=== PATIENT | male | born 1945 | race Caucasian/White ===

== ENCOUNTER → 2020-08-08 | Outpatient (CLI) | payer MEDICARE ==
[~2020-08-08] MED LIST: REGADENOSON 0.4 MG/5 ML SYRINGE ONE
== END | disposition home or self-care (01) ==
LOC: RAD 09:46
PROVIDERS: ATTEND Nurse Practitioner Primary Care
DX: I25.9 Chronic ischemic heart disease, unspecified (principal); I10 Essential (primary) hypertension; I25.10 Atherosclerotic heart disease of native coronary artery without angina pectoris; E78.2 Mixed hyperlipidemia
CPT/HCPCS: 78452; 93017; A9502; J2785

== ENCOUNTER 2020-08-21 11:14 | Day surgery (SDC) | payer MEDICARE ==
[~2020-08-21] VITALS: Ht 177.8 cm; Wt 80.0 kg
[2020-08-21] MEDS ORDERED: LISI1TAB39 PO (13:35)
[2020-08-21] MEDS ORDERED: ASPI-515 PO (13:35)
[2020-08-21] MEDS ORDERED: ATOR20TA37 PO (13:35)
[2020-08-21] MEDS ORDERED: FINA5TAB4 PO (13:35)
[2020-08-21] MEDS ORDERED: TAMS-11 PO (13:35)
[2020-08-21 14:18] LABS: BASOPHILS # (AUTO) 0.04 x10^3/uL (0-0.1); BASOPHILS % (AUTO) 0 % (0-1); EOSINOPHILS % (AUTO) 2 % (1-7); LYMPHOCYTES # (AUTO) 2.87 x10^3/uL (1-3.4); LYMPHOCYTES % (AUTO) 26 % (22-44); MD NO; MEAN CORPUSCULAR HEMOGLOBIN 32.8 pg (27.5-34.5); MEAN CORPUSCULAR HGB CONC 33.4 g/dL (33.2-36.2); MEAN PLATELET VOLUME 7.6 fL (7.4-10.4); MONOCYTES # (AUTO) 0.92 x10^3/uL (0.2-0.8); MONOCYTES % (AUTO) 8 % (2-9); NEUTROPHILS # (AUTO) 6.91 x10^3/uL (1.8-6.8); NEUTROPHILS % (AUTO) 63 % (42-75); PLATELET COUNT 281 x10^3/uL (130-400); RED BLOOD COUNT 4.67 x10^6/uL (4.38-5.82)
[2020-08-21 14:22] VITALS: BP 118/67
[2020-08-21 14:25] LABS: ANION GAP 6 mmol/L (5-15); CHLORIDE 100 mmol/L (98-107)
[2020-08-21] MEDS ORDERED: MIDAZOLAM 1 MG/ML, 5ML ONE (14:52)
[2020-08-21] MEDS ORDERED: FENTANYL PF 100 MCG/2ML ONE (14:52)
[2020-08-21] MEDS ORDERED: VERAPAMIL 2.5 MG/ML, 2ML ONE (14:53)
[2020-08-21] MEDS ORDERED: BIVALIRUDIN 250 MG ONE (14:53)
[2020-08-21] MEDS ORDERED: HEPARIN 1,000 UNITS/ML, 10ML ONE (14:53)
[2020-08-21] MEDS ORDERED: LIDOCAINE-MPF 1%, 5ML ONE (14:53)
[2020-08-21] MEDS ORDERED: LIDOCAINE 2%, 20ML ONE (15:22)
== END 2020-08-21 17:54 | disposition home or self-care (01) ==
LOC: CACL 11:14
PROVIDERS: ATTEND Internal Medicine Cardiovascular Disease
DX: R93.1 Abnormal findings on diagnostic imaging of heart and coronary circulation (principal); R06.00 Dyspnea, unspecified; I25.119 Atherosclerotic heart disease of native coronary artery with unspecified angina pectoris; I70.212 Atherosclerosis of native arteries of extremities with intermittent claudication, left leg; I70.211 Atherosclerosis of native arteries of extremities with intermittent claudication, right leg; I25.84 Coronary atherosclerosis due to calcified coronary lesion; I25.83 Coronary atherosclerosis due to lipid rich plaque; I70.92 Chronic total occlusion of artery of the extremities; I70.0 Atherosclerosis of aorta; I10 Essential (primary) hypertension; E78.2 Mixed hyperlipidemia; F17.210 Nicotine dependence, cigarettes, uncomplicated; Z79.82 Long term (current) use of aspirin; Z79.899 Other long term (current) drug therapy
CPT/HCPCS: 36415; 75625; 75716; 80048; 85025; 93458; 99156; 99157; C1760; C1769; C1894; J1644; J2250; J3010; Q9967; J0583

== ENCOUNTER → 2020-10-13 | Outpatient (CLI) | payer MEDICARE ==
[~2020-10-13] MED LIST changes: +ASPI-515 PO; +ATOR20TA37 PO; +FINA5TAB4 PO; +LISI1TAB39 PO; -REGADENOSON 0.4 MG/5 ML SYRINGE ONE; +TAMS-11 PO
== END | disposition home or self-care (01) ==
LOC: CVU 07:31
PROVIDERS: ATTEND Internal Medicine Cardiovascular Disease
DX: I35.1 Nonrheumatic aortic (valve) insufficiency (principal); I65.23 Occlusion and stenosis of bilateral carotid arteries; I25.10 Atherosclerotic heart disease of native coronary artery without angina pectoris; E78.2 Mixed hyperlipidemia; I73.9 Peripheral vascular disease, unspecified
CPT/HCPCS: 93306; 93356; 93880

== ENCOUNTER 2021-04-02 12:17 | Emergency (ER) | payer MEDICARE ==
[~2021-04-02] VITALS: Ht 177.8 cm; Wt 85.4 kg
[~2021-04-02 12:17] MED LIST changes: -ASPI-515 PO; +ASPI-963 PO
--- NOTE | 2021-04-02 13:34 | NUR ---
GI TECH: PT TO ROOM FROM ANTHONY VELAZQUEZ
--- NOTE | 2021-04-02 13:51 | NUR ---
PT AMBULATORY TO ROOM 31 W/ C/O EKG ABNORMALITIES NOTED AT EKG AT PCP DR. FREEMAN. PT DENIES ANY CP/SOB/UPPER BACK PAIN/NECK PAIN/ ARM PAIN. PT DOES STATE C/O LLQ ABD PAIN ON/OFF X 8 MONTHS. PT STATES HX CAD NO STENTS. PT RESTING ON GURNEY. NADN. MONITORS APPLIED. VSS. WARM BLANKET PROVIDED. PIV INITIATED. DANIEL NUGENT AT BEDSIDE FOR EVAL.
[2021-04-02 14:09] LABS: BASOPHILS % (AUTO) 1 % (0-1); EOSINOPHILS % (AUTO) 2 % (1-7); LYMPHOCYTES % (AUTO) 23 % (22-44); MEAN CORPUSCULAR HEMOGLOBIN 32.4 pg (27.5-34.5); MEAN CORPUSCULAR HGB CONC 33.4 g/dL (33.2-36.2); MEAN PLATELET VOLUME 8.3 fL (7.4-10.4); MONOCYTES % (AUTO) 10 % (2-9); NEUTROPHILS % (AUTO) 65 % (42-75); PLATELET COUNT 243 x10^3/uL (130-400); RED BLOOD COUNT 4.67 x10^6/uL (4.38-5.82); RED CELL DISTRIBUTION WIDTH 13.2 % (9.4-14.8)
[2021-04-02 14:11] LABS: MD NO
[2021-04-02 14:22] LABS: ALANINE AMINOTRANSFERASE 40 U/L (12-78); ANION GAP 5 mmol/L (5-15); CALCIUM 9.1 mg/dL (8.5-10.1); CHLORIDE 100 mmol/L (98-107); CREATININE 1.05 mg/dL (0.7-1.3)
[2021-04-02 14:24] LABS: ALKALINE PHOSPHATASE 80 U/L (45-117); BILIRUBIN,TOTAL 0.5 mg/dL (0.2-1.0); TOTAL PROTEIN 7.7 g/dL (6.4-8.2); TROPONIN I < 0.015 ng/mL (0.000-0.045)
--- NOTE | 2021-04-02 14:31 | NUR ---
PT RESTING ON GURNEY. NADN. RUSS.
--- NOTE | 2021-04-02 14:32 | NUR ---
PT CHART REVIEWED AND PLACED FOR RECHECK.
--- NOTE | 2021-04-02 15:55 | NUR ---
PLACED ON 2LNC, 90%RA WHEN SNOOZING. IMPROVEMENT TO 96%.
--- NOTE | 2021-04-02 16:54 | NUR ---
PT BACK FROM CTA IN STABLE CONDITION. PT RESTING ON MATTIE. FERN. VSS.
[2021-04-02] MEDS ORDERED: OMNIPAQUE 350 MG/ML, 75ML BOTTLE ONE (16:58)
--- NOTE | 2021-04-02 17:23 | NUR ---
PT CHART REVIEWED AND PLACED FOR RECHECK.
[2021-04-02 17:38] VITALS: BP 117/43
--- NOTE | 2021-04-02 17:38 | NUR ---
PT RESTING ON GURNEY. NADN. RUSS.
--- NOTE | 2021-04-02 18:13 | NUR ---
PER ERP DR. TONY FAGAN TO DC PT WHILE TROP IPR.
[2021-04-02 18:37] LABS: TROPONIN I < 0.015 ng/mL (0.000-0.045)
== END 2021-04-02 18:23 | disposition home or self-care (01) ==
LOC: ED 14:03
DX: I45.10 Unspecified right bundle-branch block (principal); R94.31 Abnormal electrocardiogram [ECG] [EKG]; R07.89 Other chest pain; E78.5 Hyperlipidemia, unspecified; I10 Essential (primary) hypertension; E11.9 Type 2 diabetes mellitus without complications; I25.10 Atherosclerotic heart disease of native coronary artery without angina pectoris; Z87.891 Personal history of nicotine dependence
CPT/HCPCS: 36415; 71045; 71275; 80053; 84484; 85025; 93005; 99285; Q9967